=== PATIENT | female | born 1955 | race Caucasian/White ===

== ENCOUNTER 2023-09-02 11:23 | Observation (INO) | payer OTHER ==
[2023-09-02] MEDS ORDERED: ONDANSETRON 4 MG/2 ML VIAL ONE (12:19)
[2023-09-02] MEDS: ONDANSETRON 4 MG/2 ML VIAL IVPUSH ONE (12:35)
[2023-09-02] MEDS: SODIUM CHLORIDE 0.9% 500 ML INFUS.BAG IV ONE (12:35)
[2023-09-02 12:39] LABS: BASO % 0.5 % (0-2.0); EOS % 0.1 % (0-4.5); HEMATOCRIT 40.4 % (32.4-45.2); HEMOGLOBIN 13.4 GM/dL (10.7-15.3); LYMPH % 38.5 % (8-40); MCH 27.3 pg (25.7-33.7); MCHC 33.2 g/dl (32.0-36.0); MEAN PLT VOLUME 8.9 fl (7.5-11.1); MONO % 2.8 % (3.8-10.2); NEUT % 58.1 % (42.8-82.8); PLATELET COUNT 240 10^3/uL (134-434); RBC 4.92 M/mm3 (3.60-5.2); RDW 13.9 % (11.6-15.6); WHITE BLOOD COUNT 10.5 K/mm3 (4.0-10.0)
[2023-09-02] MEDS ORDERED: ACETAMINOPHEN 325 MG TABLET (FP) ONE (13:09)
[2023-09-02] MEDS ORDERED: MECLIZINE HCL 25 MG TABLET (FP) ONE (13:09)
[2023-09-02 13:10] LABS: ALBUMIN 3.8 g/dl (3.4-5.0); CALCIUM 9.2 mg/dL (8.5-10.1)
[2023-09-02 13:11] LABS: BLOOD UREA NITROGEN 13.1 mg/dL (7-18)
[2023-09-02] MEDS: ACETAMINOPHEN 325 MG TABLET (FP) PO ONE (13:13)
[2023-09-02] MEDS: MECLIZINE HCL 25 MG TABLET (FP) PO ONE (13:13)
[2023-09-02 13:15] LABS: BILIRUBIN,TOTAL 0.4 mg/dL (0.2-1); CREATININE 0.7 mg/dL (0.55-1.3); TOT PROT 7.5 g/dl (6.4-8.2)
[2023-09-02] MEDS ORDERED: METOCLOPRAMIDE HCL INJECTION 10 MG/2 ML VIAL ONE (14:10)
[2023-09-02] MEDS: METOCLOPRAMIDE HCL INJECTION 10 MG/2 ML VIAL IVPUSH ONE (14:18)
[2023-09-02] MEDS ORDERED: MECLIZINE HCL 25 MG TABLET (FP) PO PRN (15:49)
[2023-09-02] MEDS: LACTATED RINGERS SOLUTION 1,000 ML IV SCH (15:51)
[2023-09-02 20:40] VITALS: BMI 26.3
[2023-09-02] MEDS: ATORVASTATIN CA 40 MG TABLET (FP) PO SCH (21:11)
[2023-09-03] MEDS: ACETAMINOPHEN 325 MG TABLET (FP) PO PRN (00:09)
[2023-09-03 07:43] LABS: BASO % 0.2 % (0-2.0); EOS % 0.3 % (0-4.5); HEMATOCRIT 37.2 % (32.4-45.2); MCH 26.7 pg (25.7-33.7); MCHC 32.3 g/dl (32.0-36.0); MEAN CELL VOLUME 82.7 fl (80-96); MEAN PLT VOLUME 8.8 fl (7.5-11.1); MONO % 9.1 % (3.8-10.2); NEUT % 55.4 % (42.8-82.8); PLATELET COUNT 222 10^3/uL (134-434); RDW 13.4 % (11.6-15.6); WHITE BLOOD COUNT 9.3 K/mm3 (4.0-10.0)
[2023-09-03 07:44] LABS: INR 1.19 (0.83-1.09); PROTHROMBIN TIME (PATIENT) 13.8 SEC (9.7-13.0)
[2023-09-03 07:46] LABS: ACTIVATED PTT 27.5 SECONDS (25.2-36.5)
[2023-09-03 07:55] LABS: POTASSIUM 4.4 mmol/L (3.5-5.1)
[2023-09-03 07:56] LABS: CALCIUM 8.7 mg/dL (8.5-10.1)
[2023-09-03 07:58] LABS: ALBUMIN 3.2 g/dl (3.4-5.0); BLOOD UREA NITROGEN 8.2 mg/dL (7-18)
[2023-09-03 08:00] LABS: CREATININE 0.6 mg/dL (0.55-1.3)
[2023-09-03 08:02] LABS: BILIRUBIN,TOTAL 0.5 mg/dL (0.2-1); TOT PROT 6.5 g/dl (6.4-8.2)
[2023-09-03 08:07] LABS: CHOLESTEROL 151 mg/dL (50-200)
[2023-09-03 08:09] LABS: LDL CHOLESTEROL (ONLY SJRH) 82 mg/dL (5-100)
[2023-09-03 08:13] LABS: HDL CHOLESTEROL 57 mg/dL (40-60)
[2023-09-03] MEDS: ASPIRIN 81 MG CHEWABLE TABLETS PO SCH (09:31)
[2023-09-03] MEDS: ENOXAPARIN NA (PORCINE) 40 MG/0.4 ML DISP.SYRIN SQ SCH (09:31)
[2023-09-03 14:13] VITALS: BP 143/72; PULSE 82; RESP 18; TEMP 98.3
== END 2023-09-03 15:47 | disposition home or self-care (01) ==
LOC: JER 11:23 → JERBED 14:35 → J4W 17:59
PROVIDERS: ADMIT Internal Medicine; ATTEND Internal Medicine
PROC: 3E023GC Introduction of Other Therapeutic Substance into Muscle, Percutaneous Approach (ICD-10-PCS; principal; 2023-09-02)
PROC: 3E033GC Introduction of Other Therapeutic Substance into Peripheral Vein, Percutaneous Approach (ICD-10-PCS; 2023-09-02)
PROC: 3E0337Z Introduction of Electrolytic and Water Balance Substance into Peripheral Vein, Percutaneous Approach (ICD-10-PCS; 2023-09-02)
DX: R42 Dizziness and giddiness (principal); I10 Essential (primary) hypertension; R73.03 Prediabetes; F41.9 Anxiety disorder, unspecified; E03.9 Hypothyroidism, unspecified; R19.7 Diarrhea, unspecified; R51.9 Headache, unspecified
CPT/HCPCS: 0241U-QW; 36415; 70450-TC; 80053; 80061; 83036; 83735; 84100; 84443; 84484; 85025; 85610; 85730; 93005; 93010; 93306-TC; 96361; 96372; 96374; 96375; 99285-25; G0378